=== PATIENT | male | born 1945 | race Caucasian/White ===

== ENCOUNTER → 2024-12-29 12:02 | Outpatient (REF) | payer OTHER, SELFPAY | LOC: HWRAD 12:02 | PROVIDERS: ATTENDING PHYSICIAN Internal Medicine Gastroenterology; FAMILY PHYSICIAN Physician Assistant | DX: R63.4 Abnormal weight loss (principal); Z86.0100 Personal history of colon polyps, unspecified | CPT/HCPCS: 76700 ==